=== PATIENT | female | born 1960 | race Caucasian/White ===

== ENCOUNTER 2024-07-16 22:14 | Emergency (ER) | payer MEDICAID, OTHER ==
[~2024-07-16] VITALS: Ht 154.9 cm; Wt 85.0 kg
[2024-07-16 22:19] VITALS: TEMP 98.8; O2SAT 100
[2024-07-16 23:33] LABS: CHLORIDE 106 mEq/L (98-107); POTASSIUM 3.8 mEq/L (3.5-5.1); SODIUM 142 mEq/L (136-145)
[2024-07-16 23:34] LABS: CALCIUM 10.9 mg/dL (8.7-10.4); CARBON DIOXIDE 25 mEq/L (21-32)
[2024-07-16 23:39] LABS: CREATININE 0.8 mg/dL (0.6-1.0); GLUCOSE 137 mg/dL (70-105); UREA NITROGEN BLOOD 12 mg/dL (9-23)
[2024-07-17 00:13] LABS: HEMOGLOBIN 13.7 g/dL (12.0-16.0); MEAN CORPUSCULAR HGB CONC 33.3 g/dL (31.0-37.0); MEAN CORPUSCULAR VOLUME 93.1 fL (81.0-99.0); PLATELET 291 x1000/uL (130-400); RED CELL DISTRIBUTION WIDTH 14.8 % (11.6-14.6); WHITE BLOOD COUNT 9.2 x1000/uL (4.5-11.0)
[2024-07-17 00:21] VITALS: BP 140/89; PULSE 90; RESP 18
[2024-07-17] MEDS: IBUPROFEN 600MG TABLET PO NR (00:21)
[2024-07-17] MEDS: TRAMADOL 50MG TABLET PO NR (00:21)
[2024-07-17] MEDS ORDERED: TRAM50TA3 MT (02:47)
[2024-07-17] MEDS ORDERED: IBUP-2029 MT (02:47)
== END 2024-07-17 03:46 | disposition home or self-care (01) ==
LOC: ER 22:14
DX: S32.2XXA Fracture of coccyx, initial encounter for closed fracture (principal); M54.30 Sciatica, unspecified side; Z79.899 Other long term (current) drug therapy; W19.XXXA Unspecified fall, initial encounter; Y93.9 Activity, unspecified; Y92.89 Other specified places as the place of occurrence of the external cause; Y99.8 Other external cause status
CPT/HCPCS: 36415; 71045; 72220; 73521; 80048; 85027; 93005; 99285

== ENCOUNTER 2025-02-18 11:24 | Inpatient (IN) | payer MEDICAID, OTHER ==
[~2025-02-18] VITALS: Ht 162.6 cm; Wt 73.6 kg
[2025-02-18] VITALS (24 sets, daily range): BP systolic 79–117; BP diastolic 48–71; PULSE 77–108; RESP 12–20; TEMP 35.6–36.7; O2SAT 92–99
[~2025-02-18 11:24] MED LIST: IBUP-2029 MT
[2025-02-18] MEDS ORDERED: CEFTRIAXONE 1GM/50ML 50 ML IV ONE (11:45)
[2025-02-18] MEDS: SODIUM CHLORIDE 0.9% (SEPSIS BOLUS) IV ONE (12:28)
[2025-02-18 13:16] LABS: BASOPHILS % 1.0 % (0.0-2.0); EOSINOPHILS % 0.3 % (0.0-5.0); HEMATOCRIT. 37.9 % (36.0-48.0); HEMOGLOBIN. 12.6 g/dL (12.0-16.0); LYMPHOCYTES % 26.6 % (20.0-50.0); MEAN PLATELET VOLUME 7.6 fl (7.4-10.4); MONOCYTES % 12.4 % (2.0-8.0); NEUTROPHILS % 59.7 % (40.0-76.0); PLATELET 335 x1000/uL (130-400); RED BLOOD CELL COUNT 4.08 mill/uL (4.2-5.4); RED CELL DISTRIBUTION WIDTH 17.3 % (11.6-14.6)
[2025-02-18 13:22] LABS: UREA NITROGEN BLOOD 9 mg/dL (9-23)
[2025-02-18 13:24] LABS: ASPARTATE AMINOTRANSFERASE 26 IU/L (<34); BILIRUBIN DIRECT 0.2 mg/dL (<=3.0); BILIRUBIN TOTAL 0.7 mg/dL (0.1-1.0); PROTEIN TOTAL 4.8 g/dL (6.0-8.3)
[2025-02-18] MEDS: CEFTRIAXONE 1GM/50ML 50 ML IV SCH (13:25)
[2025-02-18 13:28] LABS: INR 0.9
[2025-02-18] MEDS: SODIUM CHLORIDE 0.9% 1,000 ML IV ONE (13:55)
[2025-02-18 14:19] LABS: CREATININE 0.3 mg/dL (0.6-1.0)
[2025-02-18] MEDS: KCL 10MEQ/50ML PREMIX 50 ML IV SCH (14:49)
[2025-02-18] MEDS: NOREPINEPHRINE 8MG/250ML PMX 250 ML IV ONE (15:21)
[2025-02-18] MEDS ORDERED: VASOPRESSIN 20 UNIT in SODIUM CHLORIDE 0.9% 99 ML IV PRN (15:30)
[2025-02-18] MEDS ORDERED: KETOROLAC 15MG/ML VIAL IV PRN (15:30)
[2025-02-18 15:50] LABS: PHOSPHORUS 2.4 mg/dL (2.5-4.9)
[2025-02-18] MEDS ORDERED: HYDROCODONE/ACETAMINOPHEN 5/325MG TABLET PO PRN (16:15)
[2025-02-18] MEDS ORDERED: GUAIFENESIN 200MG/10ML SUGAR FREE UDC PO PRN (16:15)
[2025-02-18] MEDS ORDERED: ACETAMINOPHEN 325MG TABLET PO PRN (16:15)
[2025-02-18] MEDS ORDERED: IPRATROPIUM/ALBUTEROL 0.5-3(2.5)MG/3ML NEB HHN PRN (16:15)
[2025-02-18] MEDS ORDERED: CLONIDINE 0.1MG TABLET PO PRN (16:15)
[2025-02-18] MEDS ORDERED: MAGNESIUM/ALUMINUM HYDROXIDE/SIMETHICONE 30ML UDC PO PRN (16:15)
[2025-02-18] MEDS: DEXT 5%/LACTATED RINGERS 1,000 ML IV SCH (17:00)
[2025-02-18] MEDS: NOREPINEPHRINE 8MG/250ML PMX 250 ML IV PRN (17:15)
[2025-02-18] MEDS: MIDODRINE HCL 5MG TABLET PO SCH (18:21)
[2025-02-18 20:20] LABS: COLOR URINE YELLOW (YELLOW); GLUCOSE URINE NEGATIVE (NEGATIVE); KETONES URINE NEGATIVE (NEGATIVE); LEUKOCYTE ESTERASE URINE 3+ (NEGATIVE); NITRITE URINE NEGATIVE (NEGATIVE); OCCULT BLOOD URINE 1+ (NEGATIVE); PH URINE 8.5 (4.5-8.0); PROTEIN URINE NEGATIVE (NEGATIVE); SPECIFIC GRAVITY URINE 1.013 (1.005-1.030); UROBILINOGEN URINE 0.2 E.U./dL (0.2-1.0)
[2025-02-18] MEDS: ENOXAPARIN 40MG/0.4ML SYR SUBCUT SCH (20:56)
[2025-02-18] MEDS: KCL 20MEQ/100ML PREMIX 100 ML IV SCH (20:56)
[2025-02-18 21:00] LABS: CLARITY URINE HAZY (CLEAR)
[2025-02-18 21:06] LABS: BACTERIA URINE 2+; RBC URINE 0-2 /hpf (0-2); SQUAMOUS EPITHELIAL CELL URINE 1+ /lpf (RARE/1+)
[2025-02-18 21:07] LABS: YEAST URINE 1+
[2025-02-18 22:41] LABS: CREATINE KINASE MB FRACTION < 0.5 ng/mL (0.5-3.6)
[2025-02-18 22:42] LABS: TROPONIN I HIGH SENSITIVITY 11 ng/L (3.0-34)
[2025-02-19] VITALS (94 sets, daily range): BP systolic 73–178; BP diastolic 45–124; PULSE 77–106; RESP 14–23; TEMP 36.2–37; O2SAT 93–100
[2025-02-19 05:19] LABS: BASOPHILS % 0.5 % (0.0-2.0); EOSINOPHILS % 0.1 % (0.0-5.0); HEMATOCRIT. 37.0 % (36.0-48.0); HEMOGLOBIN. 12.2 g/dL (12.0-16.0); LYMPHOCYTES % 11.7 % (20.0-50.0); MEAN PLATELET VOLUME 8.1 fl (7.4-10.4); MONOCYTES % 6.5 % (2.0-8.0); NEUTROPHILS % 81.2 % (40.0-76.0); PLATELET 325 x1000/uL (130-400); RED BLOOD CELL COUNT 3.96 mill/uL (4.2-5.4); RED CELL DISTRIBUTION WIDTH 17.6 % (11.6-14.6)
[2025-02-19 06:36] LABS: CREATINE KINASE MB FRACTION < 0.5 ng/mL (0.5-3.6)
[2025-02-19 06:38] LABS: TRIGLYCERIDE 130 mg/dL (0-150); TROPONIN I HIGH SENSITIVITY 9 ng/L (3.0-34)
[2025-02-19 06:39] LABS: LDL CHOLESTEROL 75 mg/dL (5-100); UREA NITROGEN BLOOD 8 mg/dL (9-23)
[2025-02-19 06:42] LABS: T4 FREE 1.43 ng/dL (0.89-1.76)
[2025-02-19 06:48] LABS: CREATININE 0.4 mg/dL (0.6-1.0)
[2025-02-19] MEDS ORDERED: POTASSIUM CHLORIDE 40 MEQ in DEXT 5% WATER 230 ML IV ONE (08:45)
[2025-02-19] MEDS: POTASSIUM CHLORIDE 20MEQ TABLET SR PO NR (08:57)
[2025-02-19] MEDS: PANTOPRAZOLE SODIUM 40 MG/VIAL IV SCH (08:58)
[2025-02-19] MEDS: SODIUM CHLORIDE 0.9% 1,000 ML IV SCH (08:58)
[2025-02-19] MEDS: ENOXAPARIN 60MG/0.6ML SYR SUBCUT SCH (08:59)
[2025-02-19] MEDS ORDERED: NALOXONE HCL 0.4MG/ML VIAL IV PRN (09:00)
[2025-02-19] MEDS: KCL 20MEQ/100ML X 2 FOR TOTAL KCL 40MEQ/200ML IV SCH (09:00)
[2025-02-19] MEDS: MULTIVITAMINS,THER W-MINERALS TABLET PO SCH (09:00)
[2025-02-19] MEDS: SODIUM CHLORIDE 0.9% 500 ML IV NR (09:01)
[2025-02-19 10:13] LABS: PHOSPHORUS 2.2 mg/dL (2.5-4.9)
[2025-02-19] MEDS: CEFTRIAXONE 2GM/50ML 50 ML IV SCH (11:08)
[2025-02-19] MEDS ORDERED: CEFTRIAXONE 2GM/50ML 50 ML IV SCH (12:00)
[2025-02-19] MEDS: IOHEXOL-300 100 ML BOTTLE ONE (14:30)
[2025-02-19] MEDS: MIDODRINE HCL 5MG TABLET PO SCH (14:30)
[2025-02-19] MEDS: POTASSIUM CHLORIDE 20MEQ/PACKET PO NR (15:27)
[2025-02-19] MEDS: LORAZEPAM 2MG/ML UD SYRINGE IV NR (17:35)
[2025-02-19] MEDS: MELATONIN 3MG TABLET PO SCH (21:29)
[2025-02-20] VITALS (91 sets, daily range): BP systolic 59–119; BP diastolic 37–78; PULSE 68–111; RESP 12–23; TEMP 36.4–36.6; O2SAT 95–100
[2025-02-20 04:41] LABS: BASOPHILS % 0.8 % (0.0-2.0); EOSINOPHILS % 0.7 % (0.0-5.0); HEMATOCRIT. 39.0 % (36.0-48.0); HEMOGLOBIN. 12.7 g/dL (12.0-16.0); LYMPHOCYTES % 18.6 % (20.0-50.0); MEAN PLATELET VOLUME 7.9 fl (7.4-10.4); MONOCYTES % 13.1 % (2.0-8.0); NEUTROPHILS % 66.8 % (40.0-76.0); PLATELET 316 x1000/uL (130-400); RED BLOOD CELL COUNT 4.16 mill/uL (4.2-5.4); RED CELL DISTRIBUTION WIDTH 17.9 % (11.6-14.6)
[2025-02-20 04:57] LABS: CREATININE 0.3 mg/dL (0.6-1.0); UREA NITROGEN BLOOD 8 mg/dL (9-23)
[2025-02-20] MEDS ORDERED: LIDOCAINE HCL 1% 10 MG/ML 10ML VIAL ONE (10:23)
[2025-02-20] MEDS: LIDOCAINE HCL 1% 10 MG/ML 10ML VIAL ONE (11:34)
[2025-02-20] MEDS: HYDROCORTISONE SOD SUCCINATE 100 MG/2 ML VIAL IV NR (12:37)
[2025-02-20] MEDS: PANTOPRAZOLE SODIUM 40 MG/VIAL IV SCH (15:00)
[2025-02-20] MEDS: MIDODRINE HCL 5MG TABLET PO SCH (15:25)
[2025-02-20] MEDS: FLUCONAZOLE 150MG TABLET PO SCH (16:51)
[2025-02-20] MEDS: SODIUM PHOSPHATE 15 MMOL in DEXT 5% WATER 245 ML IV NR (16:51)
[2025-02-20] MEDS: DEXAMETHASONE 2MG TABLET PO SCH (21:29)
[2025-02-21] VITALS (92 sets, daily range): BP systolic 65–121; BP diastolic 31–83; PULSE 65–94; RESP 11–20; TEMP 36.3–36.8; O2SAT 96–100
[2025-02-21] MEDS ORDERED: SODIUM PHOSPHATE 20 MMOL in DEXT 5% WATER 243.3333 ML IV ONE (04:30)
[2025-02-21 05:19] LABS: BASOPHILS % 0.4 % (0.0-2.0); EOSINOPHILS % 0.0 % (0.0-5.0); HEMATOCRIT. 30.9 % (36.0-48.0); HEMOGLOBIN. 10.6 g/dL (12.0-16.0); LYMPHOCYTES % 17.7 % (20.0-50.0); MEAN PLATELET VOLUME 8.3 fl (7.4-10.4); MONOCYTES % 5.2 % (2.0-8.0); NEUTROPHILS % 76.7 % (40.0-76.0); PLATELET 300 x1000/uL (130-400); RED BLOOD CELL COUNT 3.42 mill/uL (4.2-5.4); RED CELL DISTRIBUTION WIDTH 17.4 % (11.6-14.6)
[2025-02-21 05:29] LABS: UREA NITROGEN BLOOD 7 mg/dL (9-23)
[2025-02-21 05:32] LABS: PHOSPHORUS 2.4 mg/dL (2.5-4.9)
[2025-02-21 05:38] LABS: CREATININE 0.2 mg/dL (0.6-1.0)
[2025-02-21] MEDS: ONDANSETRON HCL 4MG/2ML INJ IV PRN (08:01)
[2025-02-21] MEDS: POTASSIUM CHLORIDE 20MEQ/PACKET PO NR (08:15)
[2025-02-21] MEDS: MAGNESIUM 2 G PREMIX 50 ML IV NR (08:23)
[2025-02-21] MEDS: ASCORBIC ACID 250 MG TABLET PO SCH (09:00)
[2025-02-21] MEDS: ZINC SULFATE 220 MG ( 50 ) CAPSULE PO SCH (09:00)
[2025-02-21] MEDS: MULTIVITAMINS,THER W-MINERALS TABLET PO SCH (09:00)
[2025-02-21] MEDS: POTASSIUM PHOSPHATE 15 MMOL in DEXT 5% WATER 245 ML IV NR (10:10)
[2025-02-21] MEDS: HYDROCORTISONE SOD SUCCINATE 100 MG/2 ML VIAL IV SCH (13:26)
[2025-02-22] VITALS (98 sets, daily range): BP systolic 69–141; BP diastolic 32–85; PULSE 62–104; RESP 9–23; TEMP 36.1–37.1; O2SAT 95–100
[2025-02-22 06:16] LABS: BASOPHILS % 0.5 % (0.0-2.0); EOSINOPHILS % 0.0 % (0.0-5.0); HEMATOCRIT. 31.0 % (36.0-48.0); HEMOGLOBIN. 10.2 g/dL (12.0-16.0); LYMPHOCYTES % 24.7 % (20.0-50.0); MEAN PLATELET VOLUME 8.8 fl (7.4-10.4); MONOCYTES % 6.0 % (2.0-8.0); NEUTROPHILS % 68.8 % (40.0-76.0); PLATELET 247 x1000/uL (130-400); RED BLOOD CELL COUNT 3.34 mill/uL (4.2-5.4); RED CELL DISTRIBUTION WIDTH 17.4 % (11.6-14.6)
[2025-02-22 07:19] LABS: CREATININE 0.2 mg/dL (0.6-1.0)
[2025-02-22 07:20] LABS: UREA NITROGEN BLOOD 7 mg/dL (9-23)
[2025-02-22 07:22] LABS: PHOSPHORUS 2.2 mg/dL (2.5-4.9)
[2025-02-22] MEDS ORDERED: FLUDROCORTISONE ACETATE 0.1MG TABLET PO SCH (09:00)
[2025-02-22] MEDS ORDERED: POTASSIUM CHLORIDE 40 MEQ in DEXT 5% WATER 230 ML IV ONE ×2 (09:45→10:00)
[2025-02-22] MEDS: KCL 20MEQ/100ML X 2 FOR TOTAL KCL 40MEQ/200ML IV SCH ×2 (09:59→14:00)
[2025-02-22] MEDS: ACETAMINOPHEN 325MG TABLET PO PRN (09:59)
[2025-02-22] MEDS: CEFTRIAXONE 1GM/50ML 50 ML IV SCH (10:29)
[2025-02-22] MEDS: MIDODRINE HCL 5MG TABLET PO SCH (14:23)
[2025-02-23] VITALS (82 sets, daily range): BP systolic 63–143; BP diastolic 45–106; PULSE 61–103; RESP 10–23; TEMP 36.7–37.2; O2SAT 97–100
[2025-02-23 06:15] LABS: BASOPHILS % 0.4 % (0.0-2.0); EOSINOPHILS % 0.0 % (0.0-5.0); HEMATOCRIT. 30.0 % (36.0-48.0); HEMOGLOBIN. 10.0 g/dL (12.0-16.0); LYMPHOCYTES % 19.6 % (20.0-50.0); MEAN PLATELET VOLUME 8.3 fl (7.4-10.4); MONOCYTES % 9.1 % (2.0-8.0); NEUTROPHILS % 70.9 % (40.0-76.0); PLATELET 248 x1000/uL (130-400); RED BLOOD CELL COUNT 3.25 mill/uL (4.2-5.4); RED CELL DISTRIBUTION WIDTH 16.9 % (11.6-14.6)
[2025-02-23 06:30] LABS: UREA NITROGEN BLOOD 9 mg/dL (9-23)
[2025-02-23 06:32] LABS: PHOSPHORUS 1.4 mg/dL (2.5-4.9)
[2025-02-23 06:42] LABS: CREATININE 0.3 mg/dL (0.6-1.0)
[2025-02-23] MEDS ORDERED: POTASSIUM CHLORIDE 40 MEQ in DEXT 5% WATER 230 ML IV ONE (08:00)
[2025-02-23] MEDS ORDERED: LIDOCAINE HCL 1% 10 MG/ML 10ML VIAL ONE (08:18)
[2025-02-23] MEDS: POTASSIUM CHLORIDE 20MEQ TABLET SR PO NR (09:20)
[2025-02-23] MEDS: MAGNESIUM 4 G PREMIX 100 ML IV SCH (09:20)
[2025-02-23] MEDS: KCL 20MEQ/100ML PREMIX 100 ML IV SCH ×3 (09:21→17:19)
[2025-02-23] MEDS: POTASSIUM PHOSPHATE 30 MMOL in DEXT 5% WATER 490 ML IV SCH (12:25)
[2025-02-23] MEDS: MORPHINE SULFATE 2 MG/ML INJ (NOT FOR IM USE) IV PRN (12:26)
[2025-02-23] MEDS: ALBUMIN HUMAN 12.5GM/50ML (25%) IV NR (14:25)
[2025-02-23 15:22] LABS: CREATININE 0.3 mg/dL (0.6-1.0); UREA NITROGEN BLOOD 7 mg/dL (9-23)
[2025-02-23] MEDS: LACTATED RINGERS 1,000 ML IV SCH (17:20)
[2025-02-23] MEDS: NOREPINEPHRINE 8MG/250ML PMX 250 ML IV PRN (19:20)
[2025-02-23] MEDS: MIRTAZAPINE 15MG TABLET PO SCH (21:09)
[2025-02-24] VITALS (97 sets, daily range): BP systolic 70–115; BP diastolic 46–81; PULSE 70–96; RESP 10–26; TEMP 36.7–37.6; O2SAT 96–100
[2025-02-24 07:25] LABS: BASOPHILS % 0.1 % (0.0-2.0); EOSINOPHILS % 0.0 % (0.0-5.0); HEMATOCRIT. 29.8 % (36.0-48.0); HEMOGLOBIN. 10.2 g/dL (12.0-16.0); LYMPHOCYTES % 8.3 % (20.0-50.0); MEAN PLATELET VOLUME 9.0 fl (7.4-10.4); MONOCYTES % 9.2 % (2.0-8.0); NEUTROPHILS % 82.4 % (40.0-76.0); PLATELET 277 x1000/uL (130-400); RED BLOOD CELL COUNT 3.26 mill/uL (4.2-5.4); RED CELL DISTRIBUTION WIDTH 17.0 % (11.6-14.6)
[2025-02-24] MEDS: MULTIVITAMINS,THER W-MINERALS TABLET PO SCH (08:53)
[2025-02-24] MEDS: MIDODRINE HCL 5MG TABLET PO SCH (09:45)
[2025-02-24 10:13] LABS: CREATININE 0.3 mg/dL (0.6-1.0); UREA NITROGEN BLOOD 7 mg/dL (9-23)
[2025-02-24] MEDS: MIRTAZAPINE 15MG TABLET PO SCH (21:02)
[2025-02-24] MEDS: HYDROCORTISONE SOD SUCCINATE 100 MG/2 ML VIAL IV SCH (21:04)
[2025-02-25] VITALS (102 sets, daily range): BP systolic 74–115; BP diastolic 43–76; PULSE 70–116; RESP 10–23; TEMP 36.6–37.3; O2SAT 95–100
[2025-02-26] VITALS (99 sets, daily range): BP systolic 69–107; BP diastolic 41–71; PULSE 64–99; RESP 10–23; TEMP 36.6–36.9; O2SAT 91–100
[2025-02-26] MEDS: FLUDROCORTISONE ACETATE 0.1MG TABLET PO SCH (08:14)
[2025-02-26] MEDS ORDERED: HYDROCODONE/ACETAMINOPHEN 5/325MG TABLET PO SCH (23:15)
[2025-02-27] VITALS (87 sets, daily range): BP systolic 51–122; BP diastolic 34–77; PULSE 71–100; RESP 10–26; TEMP 36.5–36.9; O2SAT 93–99
[2025-02-27 04:52] LABS: BASOPHILS % 0.1 % (0.0-2.0); EOSINOPHILS % 0.0 % (0.0-5.0); HEMATOCRIT. 24.4 % (36.0-48.0); HEMOGLOBIN. 8.3 g/dL (12.0-16.0); LYMPHOCYTES % 16.9 % (20.0-50.0); MEAN PLATELET VOLUME 8.2 fl (7.4-10.4); MONOCYTES % 8.9 % (2.0-8.0); NEUTROPHILS % 74.1 % (40.0-76.0); PLATELET 207 x1000/uL (130-400); RED BLOOD CELL COUNT 2.65 mill/uL (4.2-5.4); RED CELL DISTRIBUTION WIDTH 16.8 % (11.6-14.6)
[2025-02-27 04:55] LABS: UREA NITROGEN BLOOD 8 mg/dL (9-23)
[2025-02-27 05:23] LABS: CREATININE 0.2 mg/dL (0.6-1.0)
[2025-02-27 05:26] LABS: PHOSPHORUS 0.7 mg/dL (2.5-4.9)
[2025-02-27] MEDS: POTASSIUM PHOSPHATE 30 MMOL in DEXT 5% WATER 490 ML IV NR ×2 (06:23→15:04)
[2025-02-27] MEDS: MAGNESIUM 2 G PREMIX 50 ML IV NR (06:23)
[2025-02-27] MEDS ORDERED: POTASSIUM CHLORIDE 40 MEQ in DEXT 5% WATER 230 ML IV ONE (07:30)
[2025-02-27] MEDS ORDERED: SODIUM CHLORIDE 0.9% 1,000 ML IV NR (07:30)
[2025-02-27] MEDS: KCL 20MEQ/100ML X 2 FOR TOTAL KCL 40MEQ/200ML IV SCH (08:07)
[2025-02-27] MEDS: ALBUMIN HUMAN 12.5GM/50ML (25%) IV NR (08:07)
[2025-02-28] VITALS (12 sets, daily range): BP systolic 76–93; BP diastolic 48–58; PULSE 75–97; RESP 15–23; TEMP 36.4–37.1; O2SAT 96–99
[2025-02-28 06:17] LABS: BETA-2 MICROGLOBULIN SERUM 3.7 mg/L (0.6-2.4)
[2025-02-28] MEDS: MIRTAZAPINE 15MG TABLET PO SCH (20:28)
[2025-02-28] MEDS: HYDROCORTISONE SOD SUCCINATE 100 MG/2 ML VIAL IV SCH (20:29)
[2025-03-01] VITALS (12 sets, daily range): BP systolic 77–90; BP diastolic 53–61; PULSE 77–87; RESP 15–22; TEMP 36.2–37.1; O2SAT 95–98
[2025-03-01 09:28] LABS: BASOPHILS % 0.1 % (0.0-2.0); EOSINOPHILS % 0.4 % (0.0-5.0); HEMATOCRIT. 22.8 % (36.0-48.0); HEMOGLOBIN. 7.8 g/dL (12.0-16.0); LYMPHOCYTES % 21.4 % (20.0-50.0); MEAN PLATELET VOLUME 8.2 fl (7.4-10.4); MONOCYTES % 8.8 % (2.0-8.0); NEUTROPHILS % 69.3 % (40.0-76.0); PLATELET 212 x1000/uL (130-400); RED BLOOD CELL COUNT 2.48 mill/uL (4.2-5.4); RED CELL DISTRIBUTION WIDTH 16.8 % (11.6-14.6)
[2025-03-01 09:37] LABS: UREA NITROGEN BLOOD 11 mg/dL (9-23)
[2025-03-01 09:39] LABS: PHOSPHORUS 2.3 mg/dL (2.5-4.9)
[2025-03-01 10:05] LABS: CREATININE < 0.2 mg/dL (0.6-1.0)
[2025-03-01] MEDS: POTASSIUM CHLORIDE 20MEQ/PACKET PO NR (13:21)
[2025-03-01 17:07] LABS: A/G RATIO 0.8 (0.7-1.7); BETA GLOBULIN 0.7 g/dL (0.7-1.3); GAMMA GLOBULINS 0.4 g/dL (0.4-1.8); GLOBULIN TOTAL 1.9 g/dL (2.2-3.9); M-SPIKE Not Observed g/dL (Not Observed); TOTAL PROTEIN SERUM 3.5 g/dL (6.0-8.5)
[2025-03-01] MEDS ORDERED: SODIUM CHLORIDE 0.45% 250 ML IV ONE (18:00)
[2025-03-01] MEDS: CALCIUM GLUCONATE 1GM PREMIX 50 ML IV SCH (21:17)
[2025-03-01] MEDS: POTASSIUM PHOSPHATE 15 MMOL in DEXT 5% WATER 245 ML IV SCH (21:18)
[2025-03-01] MEDS: ENOXAPARIN 80MG/0.8ML SYR SUBCUT SCH (21:21)
[2025-03-02] VITALS (12 sets, daily range): BP systolic 73–88; BP diastolic 43–59; PULSE 84–115; RESP 13–23; TEMP 36.2–37.2; O2SAT 95–99
[2025-03-02 07:37] LABS: BASOPHILS % 0.4 % (0.0-2.0); EOSINOPHILS % 0.1 % (0.0-5.0); HEMATOCRIT. 23.3 % (36.0-48.0); HEMOGLOBIN. 7.7 g/dL (12.0-16.0); LYMPHOCYTES % 12.1 % (20.0-50.0); MEAN PLATELET VOLUME 8.4 fl (7.4-10.4); MONOCYTES % 4.5 % (2.0-8.0); NEUTROPHILS % 82.9 % (40.0-76.0); PLATELET 224 x1000/uL (130-400); RED BLOOD CELL COUNT 2.51 mill/uL (4.2-5.4); RED CELL DISTRIBUTION WIDTH 16.7 % (11.6-14.6)
[2025-03-02 07:55] LABS: UREA NITROGEN BLOOD 12 mg/dL (9-23)
[2025-03-02 07:57] LABS: PHOSPHORUS 3.1 mg/dL (2.5-4.9)
[2025-03-02 08:04] LABS: CREATININE < 0.2 mg/dL (0.6-1.0)
[2025-03-02] MEDS: MIDODRINE HCL 5MG TABLET PO PRN (11:31)
[2025-03-02] MEDS ORDERED: POTASSIUM CHLORIDE 40 MEQ in DEXT 5% WATER 230 ML IV ONE (17:15)
[2025-03-02] MEDS: MAGNESIUM 2 G PREMIX 50 ML IV SCH (19:48)
[2025-03-02] MEDS: KCL 20MEQ/100ML X 2 FOR TOTAL KCL 40MEQ/200ML IV SCH (21:06)
[2025-03-03] VITALS (14 sets, daily range): BP systolic 67–84; BP diastolic 43–60; PULSE 85–103; RESP 18–23; TEMP 36.6–37.1; O2SAT 94–98
[2025-03-03] MEDS: PREDNISONE 20MG TABLET PO SCH (10:30)
[2025-03-03] MEDS: ALBUMIN HUMAN 25GM/500ML (5%) IV NR (21:08)
[2025-03-04] VITALS (22 sets, daily range): BP systolic 70–83; BP diastolic 43–59; PULSE 83–100; RESP 18–25; TEMP 36.33624–37.28076; O2SAT 94–99
[2025-03-04 07:18] LABS: CREATININE 0.2 mg/dL (0.6-1.0)
[2025-03-04 07:19] LABS: UREA NITROGEN BLOOD 15 mg/dL (9-23)
[2025-03-04] MEDS ORDERED: POTASSIUM CHLORIDE 40 MEQ in DEXT 5% WATER 230 ML IV ONE (09:15)
[2025-03-04] MEDS: POTASSIUM CHLORIDE 20MEQ TABLET SR PO NR (09:31)
[2025-03-04] MEDS: KCL 20MEQ/100ML X 2 FOR TOTAL KCL 40MEQ/200ML IV SCH (09:32)
[2025-03-04 10:53] LABS: MEAN PLATELET VOLUME 8.4 fl (7.4-10.4); PLATELET 189 x1000/uL (130-400); RED BLOOD CELL COUNT 1.82 mill/uL (4.2-5.4); RED CELL DISTRIBUTION WIDTH 17.7 % (11.6-14.6)
[2025-03-04 11:10] LABS: HEMOGLOBIN. 5.7 g/dL (12.0-16.0)
[2025-03-04 11:11] LABS: HEMATOCRIT. 16.8 % (36.0-48.0)
[2025-03-04 12:54] LABS: INR 1.0
[2025-03-04 13:59] LABS: BAND% 18.0 % (1.0-6.0); LYMPHOCYTES % MANUAL 10.0 % (20.0-60.0); MONOCYTES % MANUAL 2.0 % (2.0-8.0); NEUTROPHILS % MANUAL 70.0 % (45.0-75.0); NUCLEATED RED BLOOD CELLS 1 /100 WBC
[2025-03-04 14:02] LABS: PLATELET ESTIMATE NORMAL
[2025-03-04] MEDS: PROTAMINE SULFATE 10MG/ML VIAL 25ML IV NR (14:56)
[2025-03-05] VITALS (15 sets, daily range): BP systolic 77–93; BP diastolic 30–57; PULSE 78–96; RESP 16–30; TEMP 36.3–36.4; O2SAT 95–98
[2025-03-05] MEDS: TRAMADOL 50MG TABLET PO SCH (03:42)
[2025-03-05] MEDS: PREDNISONE 10MG TABLET PO SCH (08:30)
[2025-03-05 09:44] LABS: PLATELET 173 x1000/uL (130-400); RED BLOOD CELL COUNT 3.13 mill/uL (4.2-5.4); RED CELL DISTRIBUTION WIDTH 16.2 % (11.6-14.6)
[2025-03-05 10:05] LABS: CREATININE 0.2 mg/dL (0.6-1.0)
[2025-03-05 10:06] LABS: UREA NITROGEN BLOOD 17 mg/dL (9-23)
[2025-03-05] MEDS: KCL 20MEQ/100ML PREMIX 100 ML IV SCH (12:40)
[2025-03-05] MEDS ORDERED: LOPERAMIDE 2MG/15ML UDC PO PRN (16:30)
[2025-03-05] MEDS ORDERED: NALOXONE HCL 0.4MG/ML VIAL IV PRN (16:45)
[2025-03-05] MEDS: MORPHINE SULFATE 2 MG/ML INJ (NOT FOR IM USE) IV SCH (17:13)
[2025-03-05] MEDS: LOPERAMIDE 2MG/15ML UDC PO PRN (17:13)
[2025-03-06] VITALS (12 sets, daily range): BP systolic 72–98; BP diastolic 45–57; PULSE 85–97; RESP 14–24; TEMP 36.2–36.8; O2SAT 96–100
[2025-03-06 06:33] LABS: PLATELET 168 x1000/uL (130-400); RED BLOOD CELL COUNT 3.07 mill/uL (4.2-5.4); RED CELL DISTRIBUTION WIDTH 15.9 % (11.6-14.6)
[2025-03-06 06:41] LABS: CREATININE 0.2 mg/dL (0.6-1.0); UREA NITROGEN BLOOD 16 mg/dL (9-23)
[2025-03-06] MEDS: KCL 20MEQ/100ML PREMIX 100 ML IV SCH (08:55)
[2025-03-06] MEDS: DEXTROSE 50% WATER 50ML SYRINGE IV PRN (08:55)
[2025-03-06] MEDS: SODIUM CHLORIDE 0.9% 1,000 ML IV ONE (08:56)
[2025-03-06] MEDS: MORPHINE SULFATE 2 MG/ML INJ (NOT FOR IM USE) IV PRN (09:52)
[2025-03-07] VITALS (18 sets, daily range): BP systolic 73–92; BP diastolic 49–59; PULSE 84–97; RESP 16–21; TEMP 36.7–37.1; O2SAT 96–100
[2025-03-08] VITALS (18 sets, daily range): BP systolic 79–91; BP diastolic 48–56; PULSE 88–104; RESP 15–27; TEMP 35.3–37.6; O2SAT 94–99
[2025-03-08 02:53] LABS: PLATELET 171 x1000/uL (130-400); RED BLOOD CELL COUNT 3.10 mill/uL (4.2-5.4); RED CELL DISTRIBUTION WIDTH 16.7 % (11.6-14.6)
[2025-03-08 03:00] LABS: UREA NITROGEN BLOOD 14 mg/dL (9-23)
[2025-03-08 03:02] LABS: CREATININE < 0.2 mg/dL (0.6-1.0)
[2025-03-08] MEDS ORDERED: BISACODYL 10MG SUPP PR PRN (15:15)
[2025-03-09] VITALS (13 sets, daily range): BP systolic 71–88; BP diastolic 44–55; PULSE 89–104; RESP 15–27; TEMP 36.3–37.1; O2SAT 81–98
[2025-03-09] MEDS: SODIUM CHLORIDE 0.9% 500 ML IV SCH (13:59)
[2025-03-09] MEDS: SODIUM CHLORIDE 0.9% 500 ML IV NR (17:34)
[2025-03-09] MEDS: FLUDROCORTISONE ACETATE 0.1MG TABLET PO NR (17:35)
[2025-03-09] MEDS ORDERED: SODIUM CHLORIDE 0.9% 1,000 ML IV SCH (18:30)
[2025-03-09] MEDS: ALBUMIN HUMAN 25GM/500ML (5%) IV NR (18:47)
[2025-03-09] MEDS: DEXT 5%/0.9% NACL 1,000 ML IV SCH (18:52)
[2025-03-09] MEDS ORDERED: IOHEXOL-350 100 ML BOTTLE ONE (22:53)
[2025-03-10] VITALS (12 sets, daily range): BP systolic 71–98; BP diastolic 41–56; PULSE 88–116; RESP 17–27; TEMP 36.3–37.4; O2SAT 94–100
[2025-03-10 06:15] LABS: CREATININE 0.2 mg/dL (0.6-1.0)
[2025-03-10 06:16] LABS: UREA NITROGEN BLOOD 12 mg/dL (9-23)
[2025-03-10 06:25] LABS: PLATELET 185 x1000/uL (130-400); RED BLOOD CELL COUNT 2.91 mill/uL (4.2-5.4); RED CELL DISTRIBUTION WIDTH 16.5 % (11.6-14.6)
[2025-03-10] MEDS: PANTOPRAZOLE SODIUM 40 MG/VIAL IV SCH (09:34)
[2025-03-10] MEDS: FLUDROCORTISONE ACETATE 0.1MG TABLET PO SCH (09:34)
[2025-03-10] MEDS: DOCUSATE SODIUM 100MG CAPSULE PO PRN (09:34)
[2025-03-10] MEDS: POTASSIUM CHLORIDE 20MEQ/PACKET PO SCH (09:35)
[2025-03-10] MEDS: APIXABAN 5 MG TABLET PO SCH (11:30)
[2025-03-10] MEDS: SUCRALFATE 1G TABLET PO SCH (12:22)
[2025-03-10] MEDS: IBUPROFEN 800MG TABLET PO SCH ×2 (14:22→17:55)
[2025-03-10] MEDS: KETOROLAC 15MG/ML VIAL IV PRN (17:36)
[2025-03-11] VITALS (12 sets, daily range): BP systolic 56–77; BP diastolic 27–51; PULSE 84–128; RESP 15–30; TEMP 36.6–37; O2SAT 94–100
[2025-03-11] MEDS: POTASSIUM CHLORIDE 20MEQ/PACKET PO SCH (08:30)
[2025-03-11] MEDS ORDERED: NALOXONE HCL 0.4MG/ML VIAL IV PRN (13:30)
[2025-03-11] MEDS: TRAMADOL HCL/ACETAMINOPHEN 37.5/325MG TABLET PO PRN (14:19)
[2025-03-11] MEDS: SODIUM CHLORIDE 0.9% 250 ML IV ONE (23:32)
[2025-03-11] MEDS: SODIUM CHLORIDE 0.9% 1,000 ML IV SCH (23:39)
[2025-03-12] VITALS (20 sets, daily range): BP systolic 54–128; BP diastolic 13–100; PULSE 130–161; RESP 24–34; TEMP 36.4–36.6; O2SAT 94–96
[2025-03-12 03:13] LABS: UREA NITROGEN BLOOD 15 mg/dL (9-23)
[2025-03-12 03:14] LABS: TROPONIN I HIGH SENSITIVITY 7 ng/L (3.0-34)
[2025-03-12 03:15] LABS: ASPARTATE AMINOTRANSFERASE 13 IU/L (<34); BILIRUBIN DIRECT 0.4 mg/dL (<=3.0)
[2025-03-12 03:16] LABS: BILIRUBIN TOTAL 0.6 mg/dL (0.1-1.0)
[2025-03-12 04:04] LABS: BG BASE EXCESS -16.4 mmol/L (-2.0-3.0); BG CARBOXYHEMOGLOBIN 0.2 % (0.5-1.5); BG DEOXYHEMOGLOBIN 6.0 % (0.0-5.0); BG FLOW(L/min) 4.00 L/min; BG HCO3 ACT 9.2 mmol/L (21.0-28.0); BG METHEMOGLOBIN 0.2 % (0.5-1.5); BG OXYGEN SATURATION 94.0 % (94.0-98.0); BG OXYHEMOGLOBIN 93.6 % (94.0-98.0); BG PCO2 21.9 mmHg (32.0-45.0); BG PH 7.240 (7.350-7.450); BG PO2 80.8 mmHg (83.0-108.0); BG SAMPLE SITE RIGHT BRACHIAL; BG TOTAL HEMOGLOBIN 10.5 g/dL (12.0-16.0); BG VENT MODE NASAL CANNULA
[2025-03-12 04:05] LABS: CREATININE 0.5 mg/dL (0.6-1.0); PROTEIN TOTAL 2.6 g/dL (6.0-8.3)
[2025-03-12] MEDS: ALBUMIN HUMAN 12.5G/250ML (5%) IV NR (04:18)
[2025-03-12] MEDS: POTASSIUM CHLORIDE 20MEQ TABLET SR PO NR (05:04)
[2025-03-12] MEDS: SODIUM BICARBONATE 8.4% 50MEQ/50ML SYR IV NR ×2 (05:05→09:05)
[2025-03-12] MEDS: SODIUM CHLORIDE 0.9% 500 ML IV ONE (05:21)
[2025-03-12] MEDS: BLOOD SUGAR DIAGNOSTIC STRIP TEST SCH (07:30)
[2025-03-12] MEDS ORDERED: DEXTROSE 50% WATER 50ML SYRINGE IV PRN (07:30)
[2025-03-12] MEDS: INSULIN LISPRO 100 UNITS/ML SUBCUT SCH (08:20)
[2025-03-12] MEDS ORDERED: NOREPINEPHRINE 8MG/250ML PMX 250ML IV PRN (08:45)
[2025-03-12] MEDS ORDERED: NOREPINEPHRINE 8 MG in DEXT 5% WATER 242 ML IV PRN (08:45)
[2025-03-12] MEDS ORDERED: PHENYLEPHRINE 50MG/250ML PMX 250 ML IV PRN (09:00)
[2025-03-12] MEDS: KCL 20MEQ/100ML PREMIX 100 ML IV SCH (09:05)
[2025-03-12] MEDS: ENOXAPARIN 80MG/0.8ML SYR SUBCUT SCH (09:07)
[2025-03-12] MEDS ORDERED: VASOPRESSIN 20 UNIT in SODIUM CHLORIDE 0.9% 99 ML IV PRN (09:30)
[2025-03-12] MEDS ORDERED: SODIUM CHLORIDE 0.9% 1,000 ML IV ONE (09:45)
[2025-03-12 10:22] LABS: PLATELET 89 x1000/uL (130-400); RED BLOOD CELL COUNT 2.12 mill/uL (4.2-5.4); RED CELL DISTRIBUTION WIDTH 19.0 % (11.6-14.6)
[2025-03-12] MEDS ORDERED: ALBUMIN HUMAN 25GM/100ML (25%) IV ONE (10:45)
[2025-03-12] MEDS: ALBUMIN HUMAN 25GM/500ML (5%) IV NR (10:49)
[2025-03-12] MEDS ORDERED: WATER IV SCH (11:00)
[2025-03-12] MEDS ORDERED: POTASSIUM CHLORIDE IV SCH (11:00)
[2025-03-12] MEDS ORDERED: DEXTROSE 5% IV SCH (11:00)
[2025-03-12] MEDS ORDERED: SODIUM BICARBONATE IV SCH (11:00)
== END 2025-03-12 10:58 | DRG 720 ==
LOC: ER 11:24 → EDBEDREQ 15:25 → EDBEDREQSVC 15:25 → EDBEDREQTM 15:25 → ENRESERV 15:41 → MICUSO 17:21 → 5EST 02-27 23:57 → CVICU 03-12 07:55
PROVIDERS: ADMIT Hospitalist; ATTEND Hospitalist
PROC: 02HV33Z Insertion of Infusion Device into Superior Vena Cava, Percutaneous Approach (ICD-10-PCS; principal; 2025-02-20)
PROC: B548ZZA Ultrasonography of Superior Vena Cava, Guidance (ICD-10-PCS; 2025-02-20)
PROC: 30233N1 Transfusion of Nonautologous Red Blood Cells into Peripheral Vein, Percutaneous Approach (ICD-10-PCS; 2025-03-04)
DX: A41.81 Sepsis due to Enterococcus (principal); R65.21 Severe sepsis with septic shock; E87.20 Acidosis, unspecified; E46 Unspecified protein-calorie malnutrition; E87.0 Hyperosmolality and hypernatremia; I82.402 Acute embolism and thrombosis of unspecified deep veins of left lower extremity; K59.2 Neurogenic bowel, not elsewhere classified; C90.00 Multiple myeloma not having achieved remission; S24.103A Unspecified injury at T7-T10 level of thoracic spinal cord, initial encounter; I82.412 Acute embolism and thrombosis of left femoral vein; N13.6 Pyonephrosis; G82.20 Paraplegia, unspecified; R62.7 Adult failure to thrive; E87.6 Hypokalemia; N13.9 Obstructive and reflux uropathy, unspecified; R13.12 Dysphagia, oropharyngeal phase; D64.9 Anemia, unspecified; T14.8XXA Other injury of unspecified body region, initial encounter; K80.20 Calculus of gallbladder without cholecystitis without obstruction; G90.89 Other disorders of autonomic nervous system; L89.90 Pressure ulcer of unspecified site, unspecified stage; M48.00 Spinal stenosis, site unspecified; Z66 Do not resuscitate; M75.01 Adhesive capsulitis of right shoulder; J90 Pleural effusion, not elsewhere classified; R09.02 Hypoxemia; X58.XXXA Exposure to other specified factors, initial encounter; B95.2 Enterococcus as the cause of diseases classified elsewhere; Z74.01 Bed confinement status; Z68.27 Body mass index [BMI] 27.0-27.9, adult; Z79.899 Other long term (current) drug therapy; Z79.01 Long term (current) use of anticoagulants; Z79.52 Long term (current) use of systemic steroids; Z98.1 Arthrodesis status; Y93.89 Activity, other specified; Y92.89 Other specified places as the place of occurrence of the external cause; Y99.8 Other external cause status; Z51.5 Encounter for palliative care
CPT/HCPCS: 36415; 36573; 36600; 71045; 71275; 72128; 73030; 74177; 74230; 80048; 80061; 80076; 81003; 82010; 82232; 82375; 82550; 82553; 82784; 82805; 82962; 83605; 83735; 83880; 84100; 84132; 84145; 84155; 84165; 84439; 84443; 84484; 85014; 85018; 85025; 85027; 85044; 85379; 86334; 86850; 86900; 86920; 87015; 87045; 87070; 87077; 87186; 87427; 87449; 87493; 89055; 92610; 92611; 93005; 93306; 93970; 97110; 97162; 97166; 97535; 99285; A4606; A6261; C1725; J0612; J0696; J1650; J1720; J1885; J2003; J2060; J2270; J2371; J2405; J2470; J2720; J3475; J3480; J3490; J7030; J7042; J7060; J7070; J7120; J7512; J8540; P9016; P9041; P9047; Q9967